=== PATIENT | male | born 1995 | race Hispanic/Latino ===

== ENCOUNTER → 2019-09-02 | Emergency (ER) | payer OTHER ==
[~2019-09-02] MED LIST: EYE IRRIGATION (OPTH) 120 ML BTL ONE; FLUORESCEIN SOD(OPTH) 1 MG STRP ONE; LIDOCAINE HCL 1% LOCAL INJ 20 ML VIAL ONE; TETRACAINE HCL 0.5% OPTH SOLN 4 ML BTL ONE
== END | disposition left against medical advice (07) ==
LOC: ER 21:59
DX: R52 Pain, unspecified (principal)